=== PATIENT | female | born 1990 | race Caucasian/White ===

== ENCOUNTER → 2023-03-22 12:18 | Outpatient (BNV) | payer OTHER, SELFPAY | PROVIDERS: Visit Provider Psychiatry & Neurology Psychiatry | DX: F32.2 Major depressive disorder, single episode, severe without psychotic features (principal); F10.21 Alcohol dependence, in remission; Z3A.16 16 weeks gestation of pregnancy | CPT/HCPCS: 90792; 99213; 99214 ==

== ENCOUNTER 2023-04-26 10:00 | Outpatient (RCR) | payer OTHER, SELFPAY ==
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
--- NOTE | 2023-03-25 11:15 | HO.PHP ---
[facility] staff member followed up with Marietta due to her leaving the Substance group. [facility] staff explored with Marietta how things have been going. Marietta expressed frustration that she was placed in the substance group because she stated that she informed the rental coordinator, that she did not want to engage in that group. [facility] staff assessed with Marietta if she feels that substance use is something she may like further support in. Marietta disclosed that she does not want further support in that and feels she receives enough support from her big book meetings through AA, her sponsor, and wellness coach. Marietta expressed that she is here to work on her mental health. [facility] staff was receptive and noted if that is what she prefers to address, she will have her attend the other group. Marietta was receptive
[2023-03-25 13:35] VITALS: BP 114/58; PULSE 100; TEMP 37.1
--- NOTE | 2023-03-25 15:06 | PC.ADMIT ---
Patient is a 32 year old female who was referred to [facility] by her therapist d/t increased depression and history of severe ETOH use with a history of withdrawal seizure and hallucinations. Patient reportedly has a history of ER admission for ETOH withdrawal sxs which resulted in some cognitive impatient and patient needing a cane to ambulate. Patient reports she does not need a cane at present as ambulation has improved. Patient reports she relapsed from ETOH in December for one day after 7 months sobriety. At highest point, drinking up to 5 boxes of wine a day. Reports she started drinking at the beginning of the pandemic and use escalated. Patient is alert and oriented x4. Calm and cooperative. She presented with depressed mood and anxious affect. Does not want to attend [facility] groups while at [facility] at this time as she stated she wants to work on her mental health and coping skills. She reports she has been sober since December 2022 and has been attending AA and has a sponsor and feels that she is getting enough support at this time in relation to ETOH use. Medications reconciled with patient and patient's pharmacy. She reports taking medications as prescribed. She is currently living with her grandmother in [place]. Stated, Im being watched like a hawk . Stated she is not allowed to do anything. Patient reports she has not been following through with medical appointments/procedures. I offered to help Marietta make phone calls to help support her in following through with medical care appointments/procedures however she stated she wants to call on her own at home. See below (health issues not addressed). Patient denied SI or thoughts to harm herself. I gave her a copy of her safety plan and I reviewed this with her.
--- NOTE | 2023-03-28 17:13 | HO.PHP ---
Marietta explored with [facility] staff if they could provide a letter stating that she is in the program. [facility] staff was receptive and provided Marietta with a letter. PHP staff placed a copy in Marietta's record.
--- NOTE | 2023-03-28 17:14 | HO.PHP ---
Clients case was reviewed and opened today in treatment team.
--- NOTE | 2023-04-04 08:18 | HO.PHP ---
[facility] staff member was informed by Lottie, that Marietta reached out to the program, stating she won't be in attendance to program today due to not having transportation. Lottie assessed for safety, in which no safety concerns were presented. Marietta noted she will be in attendance to program tomorrow.
--- NOTE | 2023-04-04 17:57 | HO.PHP ---
[facility] staff reached out to Marietta to follow up with her due to her not attending program. [facility] staff was unable to leave a message due to her not having a VM box set up. [facility] staff attempted to reach her 2 separate times but was unsuccessful. [facility] staff will follow up with Marietta tomorrow since she had informed Lottie that she would be attending program then.
--- NOTE | 2023-04-11 15:40 | P.PNPSP_ITS ---
Subjective Subjective Date of Service: 04/11/23 Reason For Visit: MDD,AUD Interim History: Patient seen for follow-up, requesting to provider about medications. She reports ongoing depressive symptoms (low mood, feeling sad, crying spells, increased anxiety, fatigue, brain fog, anhedonia, wanting to do nothing but stay in bed, feelings of helplessness, hopelessness) and passive SI. Not wanting to be but just avoidance. She also complains of ADHD symptoms which she notes worsen when depressed. She is noted to not be on any antidepressant medication. She has had a couple of failed trials in the past. I had suggested we trial fluoxetine, however she believes she has been on that in the past and says she rather start on ZOloft as this was a medication that her previous provider (whom she was close to) had spoke about starting on but then left the practice and this was never started. She otherwise has been taking her medications regularly. Denies AE. Endorses headaches intermittently, denies any other issues or acute concerns. Medication Compliance: Yes Side effects from medications: Yes Attending Groups: Yes Mental Status Exam Mental Status Exam Patient Appearance: Well Grooomed Patient Orientation: Person, Place and Time Level of Consciousness: Awake and Alert Patient Behavior: Appropriate, Talkative and Cooperative Mood Description: Anxious and Sad Affect Description: Sad Patient Cognition Impaired: No Ability to Follow Directions: Good Speech Pattern: Clear Memory Description: Intact Hallucinations: None Delusions: Not Present Thought Process: Intact Thought Content: positive for Circumstantial (rumination) Depressive Symptoms: Increased Anxiety, Diff. Making Decisions, Changes in Appetite, Crying Spells, Loss of Int. in Activity, Hopelessness, Unhappiness, Increased Fatigue, Low Self Esteem and Loss of Energy Judgement: Good Assessment & Plan Assessment & Plan (1) Major depress dis, severe: Status: Acute Code(s): F32.2 - Major depressive disorder, single episode, severe without psychotic feat ures (2) Alcohol dependence: Status: Acute Code(s): F10.20 - Alcohol dependence, uncomplicated Plan start sertraline 50 mg (will start at 1/2 tablet daily for next couple of days) continue other medications Patient educated on: diagnosis and medication risk/benefits Informed Consent: understands Reason for contiued partial hosp. stay Substantial Risk for: inability to function and med/psych decompensation Certification I certify that partial hospital treatment is medically necessary due to the symptoms and problems resulting from the patient's mental illness and the failure to treat the patient at the partial hospital level of care would likely result in the patient requiring inpatient psychiatric care which could not be prevented at a less intensive level of care. Total time managing care of this patient today __30__ minutes. Discharge Plan Discharge Attending provider: Clement Gilmore Medications: New fluoxetine 20 mg tablet 20 mg PO DAILY 14 Days Qty: 14 0RF Rx Instructions: take 1/2 tablet daily for 2 days then increase to one tablet daily in AM guanfacine 1 mg tablet extended release 24 hr 1 mg PO QPM Qty: 14 0RF No Action spironolactone 100 mg tablet 100 mg PO BID clonazepam 1 mg tablet 1.5 mg PO BID PRN (Reason: anxiety) diphenhydramine HCl [Banophen] 25 mg capsule 25 - 50 mg PO BEDTIME PRN (Reason: Anxiety) trazodone 150 mg tablet 450 mg PO BEDTIME metformin 1,000 mg Tablet 1,000 mg PO BID folic acid 1 mg tablet 1 mg PO DAILY albuterol sulfate [Ventolin HFA] 90 mcg/actuation HFA aerosol inhaler 2 puff inhalation Q4H Stand Alone Forms: Patient Portal Discharge page
--- NOTE | 2023-04-12 15:28 | HO.PHP ---
Marietta was sitting in the hallway when PHP staff approached her and explored why she was not in group. Marietta had mentioned that she was upset that it was a music group and voiced that music is a trigger for her and makes her suicidal. Marietta had noted she informed the marketing research intern that she was not comfortable in partaking in those groups and would appreciate if a staff member made her aware prior to program. PHP staff apologized for any miscommunication. Marietta also talked about her transportation. Marietta disclosed frustration with a group member and is feeling overwhelmed by the individual not being mindful of other group members. Marietta stated it has been challenging for her to refrain from reacting. PHP staff reminded Marietta that everyone is in attendance to the program for a reason and encouraged her to focus on her needs. Marietta voiced that is difficult to do when one group member is taking up the time for others to process. PHP staff thanked Marietta and informed her that she will address with the team and the individual as needed. Marietta was still frustrated. PHP staff assessed for safety, Marietta reported no SI,plan or intent. Marietta did mention being uncertain to returning to program on Saturday because of that individual. PHP staff encouraged her to attend program and focus on what she needs to to stabilize. Marietta appeared hesitant. Marietta and PHP staff talked about her cat towards the end and enouraged her to have a good weekend. Marietta encouraged the staff as well.
--- NOTE | 2023-04-16 13:27 | PC.NURSE ---
Marietta stated she has an OBGYN appointment on or Saturday and will not be able to come to program that day. She also stated she is going to [place] and is looking forward to this and will not be at [facility] on Saturday or Saturday. [place] [facility] Clinician is aware.
--- NOTE | 2023-04-16 16:28 | HO.PHPPROGNO ---
Subjective Subjective Date of Service: 04/16/23 Reason For Visit: MDD,AUD Interim History: Patient brought in her med list. She admits she made a mistake in saying that it was Zoloft that she and her previous provider spoke about. It was in fact Prozac and adds that she had even had a short trial of this medication when she was 18. Stopped because of her BF at the time disapproved of medications. She also adds that she continues to have a lot of SI denies any intention or plan, but says she would like to stop the ZOloft and switch over to Prozac. She also says was on stimulants as a teenager for ADHD and would like to have these issues addressed. Reports other previous trials of Lunesta, Ambien, Vistaril, Seroquel, Remeron, Lamcital, naltrexone, Wellbutrin, propranolol, Celexa. WEllbutrin stopped due to hx of seizures. All other medications with reported side effects, except Propranolol and Celexa lacked efficacy. Medication Compliance: Yes Side effects from medications: Yes (as mentioned above) Attending Groups: Yes Mental Status Exam Mental Status Exam Narrative: Alert, oriented and well kempt. Normal speech. Moderate eye contact. Mood depressed, anxious. Affect is appropriate and constricted. No signs of psychosis. Cognitively is intact. No SI/HI. Judgment and insight fair. Assessment & Plan Assessment & Plan (1) Major depress dis, severe: Status: Acute Code(s): F32.2 - Major depressive disorder, single episode, severe without psychotic features (2) Alcohol dependence: Status: Acute Code(s): F10.20 - Alcohol dependence, uncomplicated Plan discontinue sertraline start fluoxetine 10 mg qam for 2-4 days then increase to 20 mg qAMm as tolerated start guanfacine ER 1 mg qd Patient educated on: diagnosis and medication risk/benefits Informed Consent: understands Reason for contiued partial hosp. stay Substantial Risk for: med/psych decompensation Certification I certify that partial hospital treatment is medically necessary due to the symptoms and problems resulting from the patient's mental illness and the failure to treat the patient at the partial hospital level of care would likely result in the patient requiring inpatient psychiatric care which could not be prevented at a less intensive level of care. Total time managing care of this patient today __30__ minutes. Discharge Plan Discharge Attending provider: Clement Gilmore Medications: New fluoxetine 20 mg tablet 20 mg PO DAILY 14 Days Qty: 14 0RF Rx Instructions: take 1/2 tablet daily for 2 days then increase to one tablet daily in AM guanfacine 1 mg tablet extended release 24 hr 1 mg PO QPM Qty: 14 0RF No Action spironolactone 100 mg tablet 100 mg PO BID clonazepam 1 mg tablet 1.5 mg PO BID PRN (Reason: anxiety) diphenhydramine HCl [Banophen] 25 mg capsule 25 - 50 mg PO BEDTIME PRN (Reason: Anxiety) trazodone 150 mg tablet 450 mg PO BEDTIME metformin 1,000 mg Tablet 1,000 mg PO BID folic acid 1 mg tablet 1 mg PO DAILY albuterol sulfate [Ventolin HFA] 90 mcg/actuation HFA aerosol inhaler 2 puff inhalation Q4H Stand Alone Forms: Patient Portal Discharge page
--- NOTE | 2023-04-18 17:54 | HO.PHP ---
[facility] staff member met with Marietta due to her leaving group two. Marietta informed the clinician it was triggering due to it bringing up past trauma and guilt around her father's passing. Marietta was provided with support and was encouraged to utilize grounding exercises. [facility] staff member actively listened to Marietta and encouraged her to take her time with regulate prior to returning to group. Marietta was receptive.
--- NOTE | 2023-04-22 09:56 | PC.NURSE ---
Marietta is not scheduled to come to program until Saturday of this week. She left a message on [facility] staff [place]'s answering machine stating she found out she is 16 week . She was scheduled for a procedure with her OBGYN last Saturday and found out she was at that time. Notified Dr Richards of above information.
--- NOTE | 2023-04-22 16:30 | HO.PHP ---
[facility] staff member contacted Marietta due to Marietta leaving a VM. Marietta shared with PHP staff member that she is and will need to speak with the provider around medications. [facility] staff was receptive and asked Marietta if her next day to program will be Saturday due to being off the next two days. Marietta confirmed. [facility] staff congratulated Marietta and asked how she is feeling about this news. Marietta expressed feeling shocked and concerned about her kai health since she was unaware. Marietta talked about upcoming appointments she has. [facility] staff also followed up with Marietta around how she is doing based off the last conversation held. Marietta reviewed her relationship with her father and how excited her father was about becoming a grandfather prior to passing. PHP staff was receptive. Marietta noted she will be at the program on Saturday. [facility] staff was receptive.
--- NOTE | 2023-04-25 10:16 | PC.NURSE ---
Marietta was not feeling well this morning c/o feeling a lightheaded when she found out today was her last day in the program. She came to my office in a panic, tearful. She stated she just found out she is 16 weeks . She stated this was a surprise to her as she did not think she could get d/t her health issues. VSS 122/88 P 82. She is excited regarding the . She stated her BF came around and is supportive. She stated she did not tell her mother yet and is anxious regarding telling her. She stated her OBGYN mad some medication changes including d/c Spironolactone and has cut back on Clonazepam as she is only taking at night currently, and reduced Trazodone from 450mg to 150 mg. She stated nurse will be calling her today at 11:00 to review her medications. She is also taking a vitamin.
--- NOTE | 2023-04-25 22:39 | HO.PHPPROGNO ---
Subjective Subjective Date of Service: 04/25/23 Reason For Visit: MDD,AUD Interim History: Patient seen for follow-up. In the interim, Marietta has learned that she is . Her pcp sent her to the OBGYN to confirm the . She is not sure when she got but they estimated she is about 16 weeks. She is expecting to have a level 2 ultrasound done in a couple of weeks for a more in-depth check on the fetus. She is planning to continue with the and although it was not planned she and her boyfriend had been trying to get . She states that it is good news but also stressful because she will need to tell family and expects some pushback as she is not in a situation where she can support herself, never mind a baby as well. She shares concerns about the baby's health, she is worried about potential damage to the fetus due to lack of self care over these past months not knowing she was . She reporteldy cut her trazodone down from 450 mg to 150 mg for the past few nights, and says she is managing but does not feel she could go down any further at this point. Unfortunately diphenhydramine has limited effect and says she would not be able to sleep on just Benadryl alone, even if the dose was increased. Medication Compliance: Yes Side effects from medications: No Attending Groups: Yes Review of Systems Acute medical concerns: Yes (perhaps 16 weeks) Mental Status Exam Mental Status Exam Narrative: Alert, oriented and in no acute distress. Appropriately dressed, well kempt. Normal speech. Moderate eye contact. Mood anxious. Affect is appropriate and constricted. No signs of psychosis. No SI/HI. Cognitively is intact. Judgment and insight fair. Assessment & Plan Assessment & Plan (1) Major depress dis, severe: Status: Acute Code(s): F32.2 - Major depressive disorder, single episode, severe without psychotic features (2) Alcohol dependence: Qualifiers: Substance use status: in remission Qualified Code(s): F10.21 - Alcohol dependence, in remission Status: Acute Code(s): F10.20 - Alcohol dependence, uncomplicated (3) : Qualifiers: Weeks of gestation: 16 weeks Qualified Code(s): Z3A.16 - 16 weeks gestation of Status: Acute Code(s): Z34.90 - Encounter for supervision of normal , unspecified, unspecified trimester Plan continue fluoxetine 20 mg qd trazodone lowered to 150 mg qhs for now clonazepam lowered to 1 mg/d from 1.5 BID. we discussed gradual taper continue other medications will followup tomorrow for discharge Patient educated on: diagnosis, medication risk/benefits, substance abuse, medical condition and other ( considerations) Informed Consent: understands and further education needed Certification I certify that partial hospital treatment is medically necessary due to the symptoms and problems resulting from the patient's mental illness and the failure to treat the patient at the partial hospital level of care would likely result in the patient requiring inpatient psychiatric care which could not be prevented at a less intensive level of care. Total time managing care of this patient today _45___ minutes. Discharge Plan Discharge Attending provider: Clement Gilmore Medications: New clonazepam 1 mg tablet 1 mg PO DAILY PRN (Reason: continue with tapering off med as directed) Qty: 21 0RF Rx Instructions: please cancel script sent for 0.5 mg tablets #10 Continued fluoxetine 20 mg tablet 20 mg PO DAILY 30 Days Qty: 30 0RF Changed trazodone 150 mg tablet 150 mg PO BEDTIME Qty: 10 0RF guanfacine 1 mg tablet extended release 24 hr 1 mg PO BID PRN (Reason: for anxiety, as tolerated) 30 Days Qty: 60 0RF Rx Instructions: please cancel previous script sent for #20 Discontinued spironolactone 100 mg tablet 100 mg PO BID clonazepam 1 mg tablet 1.5 mg PO BID PRN (Reason: anxiety) No Action diphenhydramine HCl [Banophen] 25 mg capsule 25 - 50 mg PO BEDTIME PRN (Reason: Anxiety) metformin 1,000 mg Tablet 1,000 mg PO BID folic acid 1 mg tablet 1 mg PO DAILY albuterol sulfate [Ventolin HFA] 90 mcg/actuation HFA aerosol inhaler 2 puff inhalation Q4H Stand Alone Forms: Patient Portal Discharge page Patient Education: Depression (DC)
--- NOTE | 2023-04-26 15:11 | HO.PHPPROGNO ---
Subjective Subjective Date of Service: 04/26/23 Reason For Visit: MDD,AUD Interim History: Patient seen for discharge today. Last seen yesterday, medications were reviewed. Continue with plan to gradually taper off clonazepam, trazodone was decreased from 450 mg to 150 mg, will remain there for now. Patient uses Bendryl for sleep, but says she would not be able to sleep with Benadryl alone (which otherwise would have been a better option for sleep in than the trazodone). Melatonin not effective. Will continue with fluoxetine. Marietta reports beings in good spirits today, she has anxiety but feels this is reasonable and to be expected as she still is in shock about being , however she is greatly relieved that her family, especially her mother, took the news really well and have been really supportive and positive about the news. She denies any helplessness, hopelessness or SI. No thoughts of harming self or others. She is eager to reduce medications where possible and especially concerned about the clonazepam as she is worried about the baby getting addicted . Medication Compliance: Yes Side effects from medications: No Mental Status Exam Mental Status Exam Narrative: Alert, oriented, in no acute distress. Pleasant and well kempt. Normal speech. Moderate eye contact. Mood less anxious, calmer. Affect is brighter and appropriate. No signs of psychosis. No SI/HI. Cognitively is intact. Judgment and insight fair but adequate. Assessment & Plan Assessment & Plan (1) Major depress dis, severe: Status: Acute Code(s): F32.2 - Major depressive disorder, single episode, severe without psychotic features (2) Alcohol dependence: Qualifiers: Substance use status: in remission Qualified Code(s): F10.21 - Alcohol dependence, in remission Status: Acute Code(s): F10.20 - Alcohol dependence, uncomplicated (3) : Qualifiers: Weeks of gestation: 16 weeks Qualified Code(s): Z3A.16 - 16 weeks gestation of Status: Acute Code(s): Z34.90 - Encounter for supervision of normal , unspecified, unspecified trimester Plan Discharge from [facility] Risks and benefits of treatment in vs no treatment, was discussed as well as alternative options for treatment to reduce risk of harm to patient/fetus continue with treatment plan, defer further med management to outpatient providers Discharge medications: fluoxetine 20 mg qd guanfacine ER 1 mg BID prn anxiety diphenhydramine 25-50 mg PRN sleep (will prioritize over trazodone when possible) trazodone 150 mg qhs prn sleep continue clonazepam 1mg qhs for remaining week, then will taper by 0.25 mg q7-10 days continue other regular medications: metformin, albuterol (spironolactone was discont by community provider) Patient educated on: diagnosis, medication risk/benefits, substance abuse, TMS, therapeutic strategies, medical condition and other ( mental health issues) Informed Consent: understands Reason for contiued partial hosp. stay Substantial Risk for: stable for discharge Certification I certify that partial hospital treatment is medically necessary due to the symptoms and problems resulting from the patient's mental illness and the failure to treat the patient at the partial hospital level of care would likely result in the patient requiring inpatient psychiatric care which could not be prevented at a less intensive level of care. Total time managing care of this patient today __45__ minutes. Discharge Plan Discharge Attending provider: Clement Gilmore Medications: New clonazepam 1 mg tablet 1 mg PO DAILY PRN (Reason: continue with tapering off med as directed) Qty: 21 0RF Rx Instructions: please cancel script sent for 0.5 mg tablets #10 Continued fluoxetine 20 mg tablet 20 mg PO DAILY 30 Days Qty: 30 0RF Changed trazodone 150 mg tablet 150 mg PO BEDTIME Qty: 10 0RF guanfacine 1 mg tablet extended release 24 hr 1 mg PO BID PRN (Reason: for anxiety, as tolerated) 30 Days Qty: 60 0RF Rx Instructions: please cancel previous script sent for #20 Discontinued spironolactone 100 mg tablet 100 mg PO BID clonazepam 1 mg tablet 1.5 mg PO BID PRN (Reason: anxiety) No Action diphenhydramine HCl [Banophen] 25 mg capsule 25 - 50 mg PO BEDTIME PRN (Reason: Anxiety) metformin 1,000 mg Tablet 1,000 mg PO BID folic acid 1 mg tablet 1 mg PO DAILY albuterol sulfate [Ventolin HFA] 90 mcg/actuation HFA aerosol inhaler 2 puff inhalation Q4H Stand Alone Forms: Patient Portal Discharge page Patient Education: Depression (DC)
== END 2023-04-26 23:59 | disposition home or self-care (01) ==
LOC: HO.PHPA 10:00
PROVIDERS: Visit Provider Psychiatry & Neurology Psychiatry
DX: F32.2 Major depressive disorder, single episode, severe without psychotic features (principal); F10.20 Alcohol dependence, uncomplicated; Z79.899 Other long term (current) drug therapy
CPT/HCPCS: 90791; 90853